=== PATIENT | female | born 1985 | race Caucasian/White ===

== ENCOUNTER 2016-10-19 17:01 | Emergency (ER) | payer BC ==
[~2016-10-19] VITALS: Ht 152.4 cm; Wt 56.7 kg
[2016-10-19] MEDS ORDERED: CLIN300C11 PO (17:09)
--- NOTE | 2016-10-19 17:40 | NUR ---
CONSENT OBTAINED FOR MODERATE SEDATION WHILE PERFORMING I&D. MD FELICIANO AT BEDSIDE EXPLAINING RISKS AND BENEFITS REGARDING PROCEDURE. PT VERBALIZED UNDERSTANDING ALONG WITH SIGNIFICANT OTHER AT BEDSIDE.
[2016-10-19] MEDS ORDERED: ONDANSETRON 4 MG/2 ML VIAL IV ONE (17:45)
[2016-10-19] MEDS ORDERED: MORPHINE SULFATE 2 MG/1 ML DISP.SYRIN IV ONE (17:45)
[2016-10-19] MEDS ORDERED: FENTANYL CITRATE 100 MCG/2 ML AMPUL IV ONE ×2 (17:45→18:15)
[2016-10-19] MEDS ORDERED: MIDAZOLAM HCL 2 MG/2 ML VIAL IV ONE (17:45)
[2016-10-19] MEDS ORDERED: MIDAZOLAM HCL 5 MG/ML VIAL ONE (17:48)
[2016-10-19] MEDS ORDERED: FENTANYL CITRATE 100 MCG/2 ML AMPUL ONE ×2 (17:49→18:17)
--- NOTE | 2016-10-19 17:50 | NUR ---
PROCEDURE: I&D W/ MODERATE SEDATION; REMOVAL OF BARTHOLIN ABSCESS ATTENDING: DR. FELICAINO 2 RN CONSENT OBTAINED AND IS IN THE CHART PRE-PROCEDURAL VITAL SIGN BP VIA RIGHT ARM 152/80 HR 130 RR 24 O2 SAT 100%VIA RA TEMP ORAL 36.5C START: 1750 TIME 1750; 1&D FOR BARTHOLIN ABSCESS PT IS A&O X 4, VSS, SPEAKING IN FULL SENTENCES. NAD NOTED. PT IS ON MONITOR, O2 SAT. FENTANYL 75MCG GIVEN VIA LEFT AC AT 175 VERSED 5MG GIVEN IV VIA LEFT AC AT 175 175: LIDO 1% GIVEN BY MD FELICIANO 1800: I&D DONE, APPROX 20CC OF DRAINING "PUS" LIKE DRAINAGE. 1802: FENTANYL 50MCG GIVEN VIA LEFT AC, PT IS REQUESTING MORE MEDICAITON. PT REMAINS A/OX4, SPEAKING IN FULL SENTENCES. NAD NOTED. 1814: NS WAS USED BY MD FELICIANO TO DRAIN AREA 1818: MD FELICIANO PACKED AREA 1820: PROCEDURE END
[2016-10-19] MEDS ORDERED: ONDANSETRON 4 MG/2 ML VIAL ONE (17:58)
[2016-10-19] MEDS ORDERED: MORPHINE SULFATE 4 MG/1 ML DISP.SYRIN ONE (17:58)
[2016-10-19] MEDS ORDERED: LIDOCAINE HCL 1% 20 ML VIAL TP ONE (18:00)
--- NOTE | 2016-10-19 20:17 | NUR ---
Patient discharged to home in stable conditon. Written and verbal after care instructions given. Patient verbalizes understanding of instructions.
== END 2016-10-19 20:20 | disposition home or self-care (01) ==
LOC: ER 17:07
DX: N75.0 Cyst of Bartholin's gland (principal)
CPT/HCPCS: A4217; A4663; J2250; J2270; J2405; J3010; J3490; J7030

== ENCOUNTER 2016-10-22 16:18 | Emergency (ER) | payer BC ==
[~2016-10-22] VITALS: Ht 152.4 cm; Wt 56.7 kg
[~2016-10-22 16:18] MED LIST: CLIN300C11 PO
--- NOTE | 2016-10-22 17:00 | NUR ---
CHAPERONED MD WITH EXAMINING THE PT.
[2016-10-22 17:06] VITALS: BP 130/85
--- NOTE | 2016-10-22 17:08 | NUR ---
Patient discharged to home in stable conditon. Written and verbal after care instructions given. Patient verbalizes understanding of instructions.
== END 2016-10-22 17:08 | disposition home or self-care (01) ==
LOC: ER 16:18
DX: N75.0 Cyst of Bartholin's gland (principal); Z79.2 Long term (current) use of antibiotics
CPT/HCPCS: A4663